=== PATIENT | male | born 1960 | race Caucasian/White ===

== ENCOUNTER 2016-07-31 19:56 | Emergency (ER) | payer BC ==
[2016-07-31 20:03] VITALS: BP 158/68
--- NOTE | 2016-07-31 20:36 | ERNOTE ---
ENT HPI Date of Service: 07/31/16 Time Seen by Provider: 07/31/16 20:31 Source: patient Exam Limitations: no limitations - Immun/Allergies/Home Medications Immunizations: IMMUNIZATION HX Immunizations Up to Date Yes History of Influenza Vaccine No Hx Pneumococcal Vaccination No Allergies/Adverse Reactions: Allergies Allergy/AdvReac Type Severity Reaction Status Date / Time No Known Allergies Allergy Verified 07/31/16 20:03 Home Medications: HOME MEDICATIONS Colchicine 0.6 mg PO BID 06/29/13 [Last Taken 06/29/13] Amoxicillin 875 mg PO BID #20 tablet 07/31/16 [Last Taken Unknown] - History of Present Illness Narrative: C/O OF BILATERAL EAR PAIN FOR A FEW DAYS. THINKS IT WAS WORSE AFTER JUMPING INTO A POOL. NO HX OF FEVER OR CONGESTION OR EAR DRAINAGE. NO PHX OF EAR PROBLEMS. HAS BEEN A LITTLE CONGESTED AND TRIED SOME SUDAFED WHICH HELPED A LITTLE. Review of Systems - Review of Systems Constitutional: Present: See HPI EYE: Present: no symptoms reported ENT: Present: ear pain, nose congestion Respiratory: Present: no symptoms reported Cardiology: Present: no symptoms reported Gastrointestinal/Abdominal: Present: no symptoms reported Genitourinary: Present: no symptoms reported Musculoskeletal: Present: no symptoms reported Skin: Present: no symptoms reported Neurological: Present: no symptoms reported Endocrine: Present: no symptoms reported - Patient's Past Medical History Patient History - Medical: Alcohol Abuse Patient History - Cardiac/Respiratory: No pertinent hx Patient History - Cancer: No Hx of Cancer Patient History - Surgical Procedures: No surgical history Patient History - Other: None - Social History Living Situations: spouse Abuse History: No History of abuse Psych History: No pertinent hx Smoking Status: Never smoker Alcohol Use: heavy Drug Use: none - Immunizations Immunizations Up to Date: Yes Hx Pneumococcal Vaccination: No History of Influenza Vaccine: No Physical Exam - Physical Exam General Appearance: Present: wd/wn, alert, mild distress Eye Exam: Normal inspection: bilateral Ears, Nose, Throat: Present: normal except -, hearing decreased, abnormal TM (R) , abnormal TM (L), nasal congestion - BOTH TM'S ARE WHITISH , DULL WITH LOSS OF LANDMARKS AND AIR FLUID BUBBLES AND HE C/O PAIN BILATERALLY. THE EAR CANAL IS SL RED BUT NO DRAINAGE OR PAIN WITH TUGGING OF THE EAR LOBES. HE SAYS HE HAS BEEN CLEANING HIS EARS OUT AND THERE IS NO CERUMEN IN EITHER CANAL. . Absent: cerumen impaction Neck: Present: normal inspection ED Progress - Vital Signs Vital Signs: Vital Signs 07/31/16 19:58 Temperature 36.8 C Pulse Rate 92 Respiratory 16 Rate Blood Pressure 158/68 O2 Sat by Pulse 96 Oximetry - Progress/Reassessment Chief Complaint: Earache Departure Clinical Impression: Bilateral acute serous otitis media Qualifiers: Recurrence: not specified as recurrent Qualified Code(s): H65.03 - Acute serous otitis media, bilateral - Departure Disposition: Home Follow Up Needed Condition: Good Instructions: Serous Otitis Media, Barotitis Media Additional Instructions: RECHECK WITH YOUR FAMILY DOCTOR IN 10-14 DAYS TO SEE THAT THE EARS ARE BACK TO NORMAL. CONTINUE THE OVER THE COUNTER SUDAFED. Referrals: Krystyna Dominguez MD [Primary Care Provider] - Prescriptions: Amoxicillin 875 mg PO BID #20 tablet
== END 2016-07-31 20:55 | disposition home or self-care (01) ==
LOC: ER 19:56
DX: H65.03 Acute serous otitis media, bilateral (principal)